=== PATIENT | female | born 2000 | race American Indian/Alaskan Native ===

== ENCOUNTER 2019-05-02 18:54 | Outpatient (CLI) | payer MEDICAID ==
[2019-05-02] MEDS ORDERED: LACTATED RINGERS 1,000 ML IV ONE ×2 (21:23→22:46)
[2019-05-02 21:44] LABS: Bacteria,Urine 1+ /HPF (Negative); Bilirubin,Urine NEG (Negative); Blood,Urine NEG (Negative); Calcium Oxalate Crystals,Urine FEW; Color,Urine Amber (Yellow); Mucus,Urine 3+ /HPF; Urobilinogen,Urine < 2.0 mg/dL (<2.0)
[2019-05-02] MEDS ORDERED: ceFAZolin 2 GM in NACL 0.9% 100 ML IV ONE (22:46)
[2019-05-02 23:14] VITALS: BP 103/50
== END 2019-05-02 23:40 | disposition home or self-care (01) ==
LOC: TRG 18:54
PROVIDERS: ATTEND Obstetrics & Gynecology
DX: O26.893 Other specified pregnancy related conditions, third trimester (principal); R55 Syncope and collapse; R53.1 Weakness; O47.03 False labor before 37 completed weeks of gestation, third trimester; Z3A.30 30 weeks gestation of pregnancy
CPT/HCPCS: 59025; 81001; 82962; 87086; 96361; 96365; J0690; J7120; 96360

== ENCOUNTER 2019-07-02 19:31 | Inpatient (IN) | payer MEDICAID ==
[2019-07-02] MEDS ORDERED: BRETHINE SUB-Q PRN (20:32)
[2019-07-02] MEDS ORDERED: STADOL IV PRN (20:32)
[2019-07-02] MEDS ORDERED: MINERAL OIL PO PRN (20:32)
[2019-07-02] MEDS ORDERED: AMPICILLIN/NS 2 GM/100 ML 2 GM/100 ML BAG IV ONE (20:32)
[2019-07-02] MEDS ORDERED: SUBLIMAZE IV PRN (20:32)
[2019-07-02] MEDS ORDERED: BRETHINE IVP PRN (20:32)
[2019-07-02] MEDS ORDERED: XYLOCAINE 2% INFILTRATI ONE (20:32)
[2019-07-02] MEDS: LACTATED RINGERS 1,000 ML IV SCH (20:51)
[2019-07-02] MEDS ORDERED: PITOCin/NS 20 UNIT/1000ML DRIP 20 UNITS/1,000 ML BAG IV SCH (21:00)
[2019-07-02 21:14] LABS: Hematocrit 33.1 % (30.3-42.9); Hemoglobin 11.3 gm/dl (10.1-14.3); Mean Corpuscular HGB Conc 34 % (30-34); Mean Corpuscular Volume 89 fl (79-97); Platelet Count 186 K/mm3 (140-440); Red Blood Count 3.72 M/mm3 (3.65-5.03); Red Cell Distribution Width 13.8 % (13.2-15.2)
--- NOTE | 2019-07-02 22:02 | History and Physical Report ---
History of Present Illness Date of examination: 07/02/19 Date of admission: 07/02/19 20:56 Chief complaint: leakage of fluid History of present illness: 18y/o @ 38+6 weeks presents with gross rupture of membranes. Patient is a transfer of care @ 30 weeks. course complicated by STD exposure to trichomonas. Patient is +GBS. Past History Past Medical History: other (anemia) Past Surgical History: no surgical history Social history: single - Obstetrical History Expected Date of Delivery: 07/10/19 Actual Gestation: 38 Week(s) 6 Day(s) : 1 Para: 0 Hx # Term Pregnancies: 0 Number of Pregnancies: 0 Spontaneous Abortions: 0 Induced : 0 Number of Living Children: 0 Medications and Allergies Allergies Allergy/AdvReac Type Severity Reaction Status Date / Time No Known Allergies Allergy Verified 05/02/19 19:03 Home Medications Medication Instructions Recorded Confirmed Last Taken Type Vitamin 1 tab PO DAILY 07/02/19 07/02/19 06/30/19 History RX: Ferrous Sulfate [Iron 325 MG] 1 tab PO DAILY 07/02/19 07/02/19 06/27/19 History Active Meds: Active Medications Butorphanol Tartrate (Stadol) 2 mg IV Q2H PRN PRN Reason: Pain , Severe (7-10) Ephedrine Sulfate (Ephedrine Sulfate) 10 mg IV Q2M PRN PRN Reason: Hypotension Fentanyl (Sublimaze) 100 mcg IV Q2H PRN PRN Reason: Labor Pain Oxytocin/Sodium Chloride (Pitocin/Ns 20 Unit/1000ml Drip) 20 units in 1,000 mls @ 125 mls/hr IV DIRECT LARRY Lactated Ringer's (Lactated Ringers) 1,000 mls @ 125 mls/hr IV DIRECT LARRY Last Admin: 07/02/19 20:51 Dose: 125 mls/hr Documented by: Ampicillin Sodium (Ampicillin/Ns 1 Gm/50 Ml) 1 gm in 50 mls @ 100 mls/hr IV Q4HR LARRY; Protocol Mineral Oil (Mineral Oil) 30 ml PO QHS PRN PRN Reason: Constipation Terbutaline Sulfate (Brethine) 0.25 mg SUB-Q ONCE PRN PRN Reason: Hyperstimulation/Hypertonicity Terbutaline Sulfate (Brethine) 0.25 mg IVP ONCE PRN PRN Reason: Hyperstimulation/Hypertonicity Review of Systems All systems: negative Genitourinary: leakage of fluid, contractions - Vital Signs Vital signs: Vital Signs Temp Pulse Resp BP 99.2 F 87 18 129/91 07/02/19 19:57 07/02/19 19:57 07/02/19 19:57 07/02/19 19:57 Temp Pulse Resp BP Pulse Ox 99.2 F 83 18 111/65 98 07/02/19 19:57 07/02/19 21:33 07/02/19 19:57 07/02/19 20:44 07/02/19 21:33 - Physical Exam Breasts: Positive: deferred Cardiovascular: Regular rate Lungs: Positive: Clear to auscultation Abdomen: Positive: normal appearance Results Result Diagrams: 07/02/19 20:51 All other labs normal. Assessment and Plan - Patient Problems (1) Spontaneous rupture of membranes Current Visit: Yes Status: Acute Plan to address problem: admit for augmentation and IV antibiotics (2) Active labor at term Current Visit: Yes Status: Acute
[2019-07-02] MEDS ORDERED: PITOCin/NS 30 UNIT/500ML 30 UNITS/500 ML BAG IV SCH (23:00)
[2019-07-02] MEDS ORDERED: ZOFRAN ONE (23:24)
[2019-07-03] MEDS ORDERED: MARCAINE 0.25% INFILTRATI ONE ×2 (00:24→07:21)
--- NOTE | 2019-07-03 00:49 | Anesthesia Consultation ---
Anesthesia Consult and Med Hx Date of service: 07/03/19 - Airway Anesthetic Teeth Evaluation: Good ROM Head & Neck: Adequate Mental/Hyoid Distance: Adequate Mallampati Class: Class II Intubation Access Assessment: Good - Pulmonary Exam CTA: Yes - Cardiac Exam Cardiac Exam: RRR - Pre-Operative Health Status ASA Pre-Surgery Classification: ASA2, Emergency Proposed Anesthetic Plan: Epidural - Pulmonary Hx Asthma: No - Cardiovascular System Hx Hypertension: No - Central Nervous System Hx Seizures: No Hx Psychiatric Problems: No - Endocrine Hx Renal Disease: No Hx Hypothyroidism: No Hx Hyperthyroidism: No - Hematic Hx Anemia: No Hx Sickle Cell Disease: No - Other Systems Hx Alcohol Use: No
[2019-07-03] MEDS: AMPICILLIN/NS 1 GM/50 ML 1 GM/50 ML BAG IV SCH ×2 (00:51→04:55)
[2019-07-03] MEDS ORDERED: NARCAN 2 MG/2 ML IV PRN (01:06)
[2019-07-03] MEDS ORDERED: fentaNYL-BUPIV 2 MCG/ML-0.125% 200 MCG/100 ML BAG EPIDURAL ONE (01:08)
[2019-07-03] MEDS ORDERED: fentaNYL-BUPIV 2 MCG/ML-0.125% 200 MCG/100 ML BAG EPIDURAL SCH (02:00)
[2019-07-03] MEDS: LACTATED RINGERS 1,000 ML IV SCH (03:56)
[2019-07-03] MEDS ORDERED: ZOFRAN ONE (06:33)
--- NOTE | 2019-07-03 08:18 | Procedure Note ---
OB Delivery Note - Delivery Date of Delivery: 07/03/19 Surgeon: CARMINA GAO Estimated blood loss: 300cc - Vaginal Delivery presentation: vertex Delivery position: OA Delivery induction: oxytocin Delivery augmentation: pitocin Delivery monitor: external FHT, external uterine Route of delivery: Delivery placenta: spontaneous Delivery cord: nuchal cord (x 2 ) Episiotomy: none Delivery laceration: vaginal side wall, other (Bilateral periurethral ) Delivery repair: vicryl Anesthesia: epidural Delivery comments: Pt progressed to complete/complete/+3 and pushed to deliver a viable female over intact perineum via under epidural anesthesia. Head delivered in JIMMY presentation. Tight nuchal cord x 2 noted, doubly clamped, cut and reduced. Shoulders and body delivered with ease. bulb suctioned at delivery and placed on maternal abdomen. Cord blood collected. Placenta delivered spontaneously (3VC, intact). Vagina and perineum explored. Bilateral periurethral lacerations noted to be hemostatic. First degree vaginal laceration repaired with a [id number] with 3-0 Vicryl. Hemostasis noted. EBL 300 mL. - Infant A at 1 minute: 8 at 5 minutes: 9 Gender: Female (3038g (6lb 11 oz) @ 0758 am)
[2019-07-03] MEDS ORDERED: NORCO 5/325 PO PRN (12:26)
[2019-07-03] MEDS ORDERED: PHENERGAN PR PRN (12:26)
[2019-07-03] MEDS ORDERED: PHENERGAN PO PRN (12:26)
[2019-07-03] MEDS ORDERED: TUCKS PAD TP PRN (12:26)
[2019-07-03] MEDS ORDERED: MILK OF MAGNESIA PO PRN (12:26)
[2019-07-03] MEDS ORDERED: PITOCin/NS 20 UNIT/1000ML DRIP 20 UNITS/1,000 ML BAG IV SCH (12:26)
[2019-07-03] MEDS ORDERED: FEOSOL PO SCH (12:26)
[2019-07-03] MEDS ORDERED: BENADRYL PO PRN (12:26)
[2019-07-03] MEDS ORDERED: TYLENOL PO PRN (12:26)
[2019-07-03] MEDS ORDERED: DERMOPLAST TP PRN (12:26)
[2019-07-03] MEDS ORDERED: LANSINOH TP PRN ×2 (12:26)
[2019-07-03] MEDS ORDERED: SODIUM CHLORIDE FLUSH SYRINGE 10 ML IV NR (12:26)
[2019-07-03] MEDS ORDERED: ZOFRAN IV PRN (12:26)
[2019-07-03] MEDS ORDERED: DULCOLAX PR PRN (12:26)
[2019-07-03] MEDS: IBUPROFEN PO SCH ×3 (18:16→23:08)
[2019-07-03 20:19] LABS: Hematocrit 34.2 % (30.3-42.9); Hemoglobin 11.1 gm/dl (10.1-14.3)
[2019-07-04] MEDS: IBUPROFEN PO SCH (05:17)
--- NOTE | 2019-07-04 08:03 | Progress Note ---
Assessment and Plan A: PPD#1 s/p at term P: Routine care. Plan to discharge home later today. Subjective - Subjective Date of service: 07/04/19 Principal diagnosis: s/p at term Interval history: Pt without complaints. Requesting discharge today. Patient reports: appetite normal, voiding normally, pain well controlled, ambulating normally [place]: doing well Objective - Vital Signs Latest vital signs: Vital Signs Temp Pulse Resp BP BP Pulse Ox 07/04/19 00:00 98.7 F 71 18 118/72 07/03/19 20:00 98.7 F 66 18 104/68 07/03/19 15:55 98 F 69 20 106/71 07/03/19 11:57 98.6 F 83 18 104/61 98 07/03/19 08:07 92 H 123/65 Intake and Output 07/03/19 07/04/19 07/04/19 22:59 06:59 14:59 Intake Total 440 Output Total 600 Balance -160 Intake: Oral 440 Output: Urine 600 Void 600 Other: Total, Intake Amount 120 Total, Output Amount 600 - Exam Breasts: Present: deferred Cardiovascular: Present: Regular rate Lungs: Present: Clear to auscultation Abdomen: Present: soft Extremities: Present: normal
--- NOTE | 2019-07-04 08:05 | Discharge Summary ---
Providers - Providers Date of Admission: 07/02/19 20:56 Date of discharge: 07/04/19 Attending physician: RICH GERARDO Primary care physician: RICH GERARDO Hospitalization Reason for admission: rupture of membranes Delivery: Procedure details: Please see delivery note. Episiotomy: none Laceration: vaginal side wall Other procedures: none complications: none Discharge diagnosis: IUP at term delivered baby: female Hospital course: Patient was admitted with rupture of membranes at term and went on to have a spontaneous vaginal delivery which she tolerated well. The remainder of her course was uncomplicated and she went discharge criteria on postoperative day #2. She will follow-up in the office in 6 weeks. Condition at discharge: Stable Disposition: DC-01 TO HOME OR SELFCARE - Discharge Diagnoses (1) Term of female Status: Acute (2) Active labor at term Status: Acute (3) Spontaneous rupture of membranes Status: Acute Plan - Discharge Medications Prescriptions: Ibuprofen [Motrin] 800 mg PO Q8HR PRN #30 tablet PRN Reason: Pain, Moderate (4-6) HYDROcodone/APAP 5-325 [Evans 5/325] 1 each PO Q6HR PRN #20 tablet PRN Reason: Pain - Provider Discharge Summary Activity: routine, no sex for 6 weeks, no heavy lifting 4 weeks, no strenuous exercise Diet: routine Instructions: routine Additional instructions: [] Smoking cessation referral if applicable(refer to patient education folder for contact #) [] Refer to [facility]'s [facility] Booklet Call your doctor immediately for: * Fever > 100.5 * Heavy vaginal bleeding ( >1 pad per hour) * Severe persistent headache * Shortness of breath * Reddened, hot, painful area to leg or breast * Drainage or odor from incision. * Keep incision clean and dry at all times and follow doctor's instructions regarding bathing/showering - Follow up plan Follow up: ESTHER JOHNSTON CNM [Advanced Practice Nurse] - 6 Weeks (Please call to schedule appt )
[2019-07-04] MEDS ORDERED: BOOSTRIX IM ONE (08:19)
[2019-07-04] MEDS ORDERED: M-M-R II VACCINE SUB-Q ONE (08:19)
[2019-07-04 17:30] VITALS: BP 108/63
== END 2019-07-04 18:53 | disposition home or self-care (01) | DRG 775 ==
LOC: TRG 19:31 → LD 20:56 → OBSVTOIN 20:56 → TRG 20:56 → OB 07-03 11:55
PROVIDERS: ADMIT Obstetrics & Gynecology; ATTEND Obstetrics & Gynecology
PROC: 10E0XZZ Delivery of Products of Conception, External Approach (ICD-10-PCS; principal; 2019-07-03)
PROC: 3E033VJ Introduction of Other Hormone into Peripheral Vein, Percutaneous Approach (ICD-10-PCS; 2019-07-03)
PROC: 0HQ9XZZ Repair Perineum Skin, External Approach (ICD-10-PCS; 2019-07-03)
PROC: 3E0R3BZ Introduction of Anesthetic Agent into Spinal Canal, Percutaneous Approach (ICD-10-PCS; 2019-07-03)
PROC: 00HU33Z Insertion of Infusion Device into Spinal Canal, Percutaneous Approach (ICD-10-PCS; 2019-07-03)
DX: O99.824 Streptococcus B carrier state complicating childbirth (principal); O69.1XX0 Labor and delivery complicated by cord around neck, with compression, not applicable or unspecified; O70.0 First degree perineal laceration during delivery; O71.82 Other specified trauma to perineum and vulva; Z3A.38 38 weeks gestation of pregnancy; Z37.0 Single live birth
CPT/HCPCS: 36415; 85014; 85018; 85027; 86592; 86850; 86900; 86901; G0378; J0290; J2405; J2590; J3010; J7120